=== PATIENT | male | born 1975 | race Caucasian/White ===

== ENCOUNTER 2020-05-25 11:43 | Inpatient (IN) | payer OTHER ==
[~2020-05-25] VITALS: Ht 172.7 cm; Wt 83.9 kg
[~2020-05-25 11:43] MED LIST: CATAPRES 0.1MG0.1 MG PO; CHLORTHALIDONE25 MG PO; HYDRALAZINE HCL50 MG PO; LORTAB 5-325 M1 EACH PO; NORVASC10 MG PO; PHENERGAN 25 MG25 M1 PO; PROZAC40 MG PO; WELLBUTRIN XL150 MG PO
[2020-05-25 13:37] LABS: HEMOGLOBIN 9.5 gm/dl (14.0-17.5); RED BLOOD COUNT 3.1 M/UL (4.20-5.50); WHITE BLOOD COUNT 15.8 K/UL (4.5-11.0)
[2020-05-25] MEDS ORDERED: BYSTOLIC2.5 MG PO (18:24)
[2020-05-25] MEDS ORDERED: PHOSLO 667 MG667 MG PO (18:25)
[2020-05-25] MEDS ORDERED: HYGROTON TAB 2525 MG PO (18:26)
[2020-05-25] MEDS ORDERED: BACLOFEN20 MG PO (18:26)
[2020-05-25] MEDS ORDERED: HYDROCODON-ACE1 EAC4 PO (18:27)
[2020-05-25] MEDS ORDERED: CENTRUM ULTRA1 EACH PO (18:30)
[2020-05-25] MEDS ORDERED: IMITREX50 MG PO (18:31)
[2020-05-25] MEDS ORDERED: ZOFRAN ODT 4 MG4 MG PO (18:31)
[2020-05-25] MEDS ORDERED: NICODERM CQ1 EAC1 TD (18:33)
[2020-05-26 03:42] LABS: HEMOGLOBIN 10.2 gm/dl (14.0-17.5); RED BLOOD COUNT 3.3 M/UL (4.20-5.50); WHITE BLOOD COUNT 17.8 K/UL (4.5-11.0)
[2020-05-27 04:13] LABS: HEMOGLOBIN 10.6 gm/dl (14.0-17.5); RED BLOOD COUNT 3.44 M/UL (4.20-5.50)
[2020-05-27 04:18] LABS: WHITE BLOOD COUNT 12.8 K/UL (4.5-11.0)
[2020-05-28 04:28] LABS: HEMOGLOBIN 9.9 gm/dl (14.0-17.5); RED BLOOD COUNT 3.2 M/UL (4.20-5.50); WHITE BLOOD COUNT 10.3 K/UL (4.5-11.0)
[2020-05-28] MEDS ORDERED: CYCLOBENZAPRINE10 MG PO (17:58)
--- NOTE | 2020-05-28 19:40 | NUR ---
PT LEFT FLOOR ESCORTED BY NURSES AID, IN A WHEELCHAIR. PT HAD NO COMPLAINTS UPON LEAVING AND CLAIMED TO HAVE ALL OF HIS BELOGNINGS. PT'S MOTHER CALLED UP TO THE FLOOR TO CONFIRM SHE HAD ARRIVED TO TAKE HIM HOME. PT HAD DISCHARGE PACKET IN HIS POSSESSION UPON LEAVING THE FLOOR
[2020-05-29 08:14] LABS: HBSAG SCREEN Negative (Negative); HEP A AB, IGM Negative (Negative); HEP B CORE AB, IGM Negative (Negative); HEP C VIRUS AB <0.1 (0.0-0.9)
== END 2020-05-29 00:21 | disposition home or self-care (01) | DRG 304 ==
LOC: ER1 11:43 → CDU 18:58 → CCU 20:17 → PROG CARE 05-28 02:41
PROVIDERS: Emergency Medicine; Internal Medicine Nephrology; ADMIT Internal Medicine
PROC: 5A1D70Z Performance of Urinary Filtration, Intermittent, Less than 6 Hours Per Day (ICD-10-PCS; 2020-05-25)
PROC: 0TB13ZX Excision of Left Kidney, Percutaneous Approach, Diagnostic (ICD-10-PCS; principal; 2020-05-28)
PROC: 5A1D70Z Performance of Urinary Filtration, Intermittent, Less than 6 Hours Per Day (ICD-10-PCS; 2020-05-28)
DX: I16.1 Hypertensive emergency (principal); G92 Toxic encephalopathy; N18.6 End stage renal disease; T42.8X5A Adverse effect of antiparkinsonism drugs and other central muscle-tone depressants, initial encounter; I12.0 Hypertensive chronic kidney disease with stage 5 chronic kidney disease or end stage renal disease; E87.6 Hypokalemia; F32.9 Major depressive disorder, single episode, unspecified; G25.3 Myoclonus; L40.9 Psoriasis, unspecified; Z20.822 Contact with and (suspected) exposure to COVID-19; F17.210 Nicotine dependence, cigarettes, uncomplicated; F41.9 Anxiety disorder, unspecified; D72.829 Elevated white blood cell count, unspecified; Z79.899 Other long term (current) drug therapy; Z99.2 Dependence on renal dialysis; Z91.19 Patient's noncompliance with other medical treatment and regimen
CPT/HCPCS: ECHO; 36415; 36600; 70450; 71045; 77012; 80048; 80053; 80074; 80307; 81001; 82140; 82150; 82550; 82553; 82803; 82962; 83605; 83690; 83735; 83874; 84100; 84443; 84484; 85025; 85610; 85730; 86140; 87040; 88305; 88313; 88346; 88348; 90471; 90937; 93005; 93306; 96374; 96375; 99285; C9113; J0610; J0696; J2270; J2405; J2550; J7030; U0002

== ENCOUNTER 2020-11-05 07:13 | Emergency (ER) | payer MEDICARE, OTHER ==
[~2020-11-05 07:13] MED LIST changes: +BACLOFEN20 MG PO; +BYSTOLIC2.5 MG PO; +CENTRUM ULTRA1 EACH PO; +CYCLOBENZAPRINE10 MG PO; +HYDROCODON-ACE1 EAC4 PO; +HYGROTON TAB 2525 MG PO; +IMITREX50 MG PO; +NICODERM CQ1 EAC1 TD; +PHOSLO 667 MG667 MG PO; +ZOFRAN ODT 4 MG4 MG PO
[2020-11-05 08:49] LABS: HEMOGLOBIN 10.9 gm/dl (14.0-17.5); RED BLOOD COUNT 3.4 M/UL (4.20-5.50); WHITE BLOOD COUNT 10.3 K/UL (4.5-11.0)
[2020-11-05 09:21] LABS: BUN/CREATININE RATIO 4 (0-10)
[2020-11-05 11:17] LABS: BUN/CREATININE RATIO 4 (0-10)
== END 2020-11-05 11:34 | disposition home or self-care (01) ==
LOC: ER1 07:13
PROVIDERS: Physician Assistant
DX: I12.0 Hypertensive chronic kidney disease with stage 5 chronic kidney disease or end stage renal disease (principal); N18.6 End stage renal disease; F17.210 Nicotine dependence, cigarettes, uncomplicated; Z99.2 Dependence on renal dialysis; Z88.8 Allergy status to other drugs, medicaments and biological substances; Z20.822 Contact with and (suspected) exposure to COVID-19
CPT/HCPCS: 36600; 70450; 71045; 80048; 80053; 81001; 82550; 82553; 82803; 83874; 83880; 84100; 84484; 85025; 87086; 93005; 94664; 99285; U0002

== ENCOUNTER 2021-11-08 15:19 | Emergency (ER) | payer MEDICARE, OTHER, MEDICAID ==
[2021-11-08 16:52] LABS: RED BLOOD COUNT 2.79 M/UL (4.20-5.50); WHITE BLOOD COUNT 7.3 K/UL (4.5-11.0)
[2021-11-08] MEDS ORDERED: SUCRALFATE1 GM PO (20:08)
[2021-11-08] MEDS ORDERED: LASIX20 MG PO (20:11)
== END 2021-11-08 20:22 | disposition home or self-care (01) ==
LOC: ER1 15:19
PROVIDERS: Physician Assistant
DX: I12.0 Hypertensive chronic kidney disease with stage 5 chronic kidney disease or end stage renal disease (principal); N18.6 End stage renal disease; K62.5 Hemorrhage of anus and rectum; R18.8 Other ascites; Z99.2 Dependence on renal dialysis; K21.9 Gastro-esophageal reflux disease without esophagitis; F17.210 Nicotine dependence, cigarettes, uncomplicated; Z88.8 Allergy status to other drugs, medicaments and biological substances
CPT/HCPCS: 80053; 81001; 83605; 83690; 83735; 83880; 85025; 96374; 99284; J2550